=== PATIENT | female | born 1990 | race Caucasian/White ===

== ENCOUNTER 2017-12-01 22:50 | Inpatient (IN) | payer MEDICAID ==
[~2017-12-01] VITALS: Ht 165.1 cm; Wt 66.7 kg
[~2017-12-01 22:50] MED LIST: CHOL10002 PO; CIPR-245 PO; MIRT15 PO
[2017-12-02] MEDS ORDERED: ZOLPIDEM TARTRATE 10 MG TABLET PO PRN (00:45)
[2017-12-02 01:01] VITALS: BP 99/63
[2017-12-02 01:37] VITALS: BP 107/70
[2017-12-02] MEDS ORDERED: [UNRECOGNIZED DRUG - REMARK] PO (02:08)
[2017-12-02] MEDS ORDERED: MAG HYDROX/AL HYDROX/SIMETH ES 30 ML SUSPENSION UDCUP PO PRN ×2 (02:15→10:00)
[2017-12-02] MEDS ORDERED: MAGNESIUM HYDROXIDE SUSPENSION 30 ML UDCUP PO PRN ×2 (02:15→10:00)
[2017-12-02] MEDS ORDERED: LOPERAMIDE HCL 2 MG CAPSULE PO PRN ×2 (02:15→10:00)
[2017-12-02] MEDS ORDERED: PROMETHAZINE HCL 25 MG TABLET PO PRN ×2 (02:15→10:00)
[2017-12-02] MEDS ORDERED: ACETAMINOPHEN 325 MG TABLET PO PRN ×2 (02:15→10:00)
[2017-12-02] MEDS ORDERED: RISPC25 IM (06:49)
[2017-12-02] MEDS ORDERED: RISP1 PO (06:49)
[2017-12-02 08:07] VITALS: BP 100/64
[2017-12-02 08:28] LABS: BASOPHILS % (AUTO) 0.5 % (0.0-2.0); EOSINOPHILS % (AUTO) 4.8 % (1.0-6.0); HEMATOCRIT 37.6 % (36-46); HEMOGLOBIN 12.6 g/dL (12.0-16.0); LYMPHOCYTES # (AUTO) 2.2 K/uL (1.0-4.8); LYMPHOCYTES % (AUTO) 40.9 % (22.0-44.0); MEAN CORPUSCULAR HEMOGLOBIN 30.8 pg (26.0-34.0); MEAN CORPUSCULAR HGB CONC 33.4 G/dL (31.0-37.0); MEAN CORPUSCULAR VOLUME 92 fL (80-100); MONOCYTES # (AUTO) 0.5 K/uL (0.1-1.0); MONOCYTES % (AUTO) 9.6 % (2.0-9.0); NEUTROPHILS # (AUTO) 2.3 K/uL (1.8-7.7); NEUTROPHILS % (AUTO) 44.2 % (40.0-70.0); PLATELET COUNT (AUTO) 301 K/uL (150-450); RED BLOOD CELL COUNT(AUTO) 4.08 MIL/uL (4.00-5.20)
[2017-12-02 09:11] LABS: ALANINE AMINOTRANSFERASE 57 U/L (12-78); ALBUMIN 3.3 g/dL (3.4-5.0); ALKALINE PHOSPHATASE 59 U/L (46-116); ANION GAP 7 mmol/L (8-16); ASPARTATE AMINOTRANSFERASE 29 U/L (15-37); BILIRUBIN,TOTAL 0.4 mg/dL (0.1-1.0); CALCIUM, TOTAL 9.2 mg/dL (8.8-10.5); CARBON DIOXIDE 28 mmol/L (22-29); CHLORIDE 106 mmol/L (98-107); CHOL/HDL RATIO 2.7 (3.9-5.7); CHOLESTEROL 151 mg/dL (131-200); CREATININE 0.83 mg/dL (0.60-1.30); FREE T4 (FREE THYROXINE) 0.98 ng/dL (0.76-1.46); GLOMERULAR FILTR. RATE CALC > 60 mL/min (>60); GLUCOSE,RANDOM 73 mg/dL (70-110); HCG,QUANTITATIVE < 1 mIU/mL (0-6); HDL CHOLESTEROL 56 mg/dL (40-60); LDL CHOL (CALC.) 85 mg/dL (0-130); POTASSIUM 4.2 mmol/L (3.5-5.1); SODIUM SERUM 141 mmol/L (136-145); THYROID STIMULATING HORMONE 0.62 uIU/mL (0.36-3.74); TOTAL PROTEIN, SERUM 7.5 g/dL (6.4-8.2); TRIGLYCERIDES 48 mg/dL (15-150); UREA NITROGEN, BLOOD 14 mg/dL (7-18)
[2017-12-02] MEDS: NICOTINE 21 MG/24 HOUR PATCH TD SCH (09:20)
[2017-12-02] MEDS ORDERED: GuaiFENesin/D-METHORPHAN [SUGAR-FREE] 200-20MG/10 ML SYRUP UDCUP PO PRN (10:00)
[2017-12-02] MEDS ORDERED: HydrOXYzine PAMOATE 50 MG CAPSULE PO PRN (10:00)
[2017-12-02] MEDS ORDERED: TUBERCULIN, PURIFIED PROTEIN DERIVATIVE 5 TU/0.1 ML SYG ID ONE (10:00)
[2017-12-02] MEDS: THIAMINE HCL 100 MG TABLET PO SCH (17:50)
[2017-12-02 21:26] VITALS: BP 110/65
[2017-12-02] MEDS: DIVALPROEX SODIUM 500 MG ER TABLET PO SCH (21:31)
[2017-12-02] MEDS: OLANZapine 5 MG RAPDIS TABLET PO SCH (21:32)
[2017-12-03 06:25] VITALS: BP 101/61
[2017-12-03 08:05] VITALS: BP 90/60
[2017-12-03] MEDS: FOLIC ACID 1 MG TABLET PO SCH (08:21)
[2017-12-03] MEDS: MULTIVITAMINS WITH MINERALS, THERAPEUTIC TABLET PO SCH (08:21)
[2017-12-03] MEDS: NALTREXONE HCL 50 MG TABLET PO SCH (08:24)
[2017-12-03] MEDS: THIAMINE HCL 100 MG TABLET PO SCH ×2 (08:24→18:05)
[2017-12-03] MEDS: NICOTINE 21 MG/24 HOUR PATCH TD SCH (08:31)
[2017-12-03] MEDS ORDERED: FLUoxetine HCL 20 MG CAPSULE PO SCH (09:00)
[2017-12-03 17:27] VITALS: BP 108/68
[2017-12-03 17:29] VITALS: BP 111/77
[2017-12-03] MEDS: DIVALPROEX SODIUM 500 MG ER TABLET PO SCH (20:34)
[2017-12-03] MEDS: OLANZapine 5 MG RAPDIS TABLET PO SCH (20:34)
[2017-12-04 05:48] VITALS: BP 106/65
[2017-12-04 08:09] VITALS: BP 90/60
[2017-12-04] MEDS: FOLIC ACID 1 MG TABLET PO SCH (08:23)
[2017-12-04] MEDS: NALTREXONE HCL 50 MG TABLET PO SCH (08:23)
[2017-12-04] MEDS: THIAMINE HCL 100 MG TABLET PO SCH ×2 (08:23→16:51)
[2017-12-04] MEDS: MULTIVITAMINS WITH MINERALS, THERAPEUTIC TABLET PO SCH (08:23)
[2017-12-04] MEDS: FLUoxetine HCL 20 MG CAPSULE PO SCH (08:23)
[2017-12-04] MEDS: NICOTINE 21 MG/24 HOUR PATCH TD SCH (08:24)
[2017-12-04 16:00] VITALS: BP 105/62
[2017-12-04] MEDS: OLANZapine 5 MG RAPDIS TABLET PO SCH (20:23)
[2017-12-04] MEDS: DIVALPROEX SODIUM 500 MG ER TABLET PO SCH (20:23)
[2017-12-05 07:01] VITALS: BP 98/77
[2017-12-05 08:03] VITALS: BP 100/60
[2017-12-05] MEDS: NALTREXONE HCL 50 MG TABLET PO SCH (08:53)
[2017-12-05] MEDS: THIAMINE HCL 100 MG TABLET PO SCH ×2 (08:53→17:10)
[2017-12-05] MEDS: MULTIVITAMINS WITH MINERALS, THERAPEUTIC TABLET PO SCH (08:53)
[2017-12-05] MEDS: FOLIC ACID 1 MG TABLET PO SCH (08:53)
[2017-12-05] MEDS: FLUoxetine HCL 20 MG CAPSULE PO SCH (08:53)
[2017-12-05] MEDS: NICOTINE 21 MG/24 HOUR PATCH TD SCH (08:59)
[2017-12-05 16:03] VITALS: BP 112/66
[2017-12-05] MEDS: OLANZapine 5 MG RAPDIS TABLET PO SCH (20:03)
[2017-12-05] MEDS: DIVALPROEX SODIUM 500 MG ER TABLET PO SCH (20:03)
[2017-12-06 06:00] VITALS: BP 108/64
[2017-12-06 08:24] VITALS: BP 110/64
[2017-12-06] MEDS: FLUoxetine HCL 20 MG CAPSULE PO SCH (08:53)
[2017-12-06] MEDS: THIAMINE HCL 100 MG TABLET PO SCH ×2 (08:53→17:07)
[2017-12-06] MEDS: NALTREXONE HCL 50 MG TABLET PO SCH (08:53)
[2017-12-06] MEDS: FOLIC ACID 1 MG TABLET PO SCH (08:53)
[2017-12-06] MEDS: MULTIVITAMINS WITH MINERALS, THERAPEUTIC TABLET PO SCH (08:53)
[2017-12-06] MEDS: NICOTINE 21 MG/24 HOUR PATCH TD SCH (09:00)
[2017-12-06 16:30] VITALS: BP 111/64
[2017-12-06] MEDS: OLANZapine 5 MG RAPDIS TABLET PO SCH (20:31)
[2017-12-06] MEDS: DIVALPROEX SODIUM 500 MG ER TABLET PO SCH (20:31)
[2017-12-07 06:45] VITALS: BP 109/65
[2017-12-07 08:03] VITALS: BP 110/68
[2017-12-07] MEDS: FOLIC ACID 1 MG TABLET PO SCH (08:29)
[2017-12-07] MEDS: FLUoxetine HCL 20 MG CAPSULE PO SCH (08:29)
[2017-12-07] MEDS: THIAMINE HCL 100 MG TABLET PO SCH ×2 (08:29→16:57)
[2017-12-07] MEDS: MULTIVITAMINS WITH MINERALS, THERAPEUTIC TABLET PO SCH (08:29)
[2017-12-07] MEDS: NICOTINE 21 MG/24 HOUR PATCH TD SCH (08:30)
[2017-12-07] MEDS: NALTREXONE HCL 50 MG TABLET PO SCH (08:30)
[2017-12-07 16:19] VITALS: BP 107/68
[2017-12-07] MEDS: OLANZapine 5 MG RAPDIS TABLET PO SCH (20:19)
[2017-12-07] MEDS: DIVALPROEX SODIUM 500 MG ER TABLET PO SCH (20:19)
[2017-12-08 01:54] VITALS: BP 114/71
[2017-12-08 08:04] VITALS: BP 116/68
[2017-12-08] MEDS: FOLIC ACID 1 MG TABLET PO SCH (08:04)
[2017-12-08] MEDS: FLUoxetine HCL 20 MG CAPSULE PO SCH (08:04)
[2017-12-08] MEDS: THIAMINE HCL 100 MG TABLET PO SCH ×2 (08:05→16:49)
[2017-12-08] MEDS: NICOTINE 21 MG/24 HOUR PATCH TD SCH (08:05)
[2017-12-08] MEDS: NALTREXONE HCL 50 MG TABLET PO SCH (08:05)
[2017-12-08] MEDS: MULTIVITAMINS WITH MINERALS, THERAPEUTIC TABLET PO SCH (08:05)
[2017-12-08 16:00] VITALS: BP 105/63
[2017-12-08] MEDS: DiphenhydrAMINE HCL 25 MG CAPSULE PO SCH (20:32)
[2017-12-08] MEDS: DIVALPROEX SODIUM 500 MG ER TABLET PO SCH (20:32)
[2017-12-08] MEDS: OLANZapine 5 MG RAPDIS TABLET PO SCH (20:33)
[2017-12-09 05:59] VITALS: BP 101/65
[2017-12-09 08:17] VITALS: BP 100/57
[2017-12-09] MEDS: FLUoxetine HCL 20 MG CAPSULE PO SCH (08:45)
[2017-12-09] MEDS: FOLIC ACID 1 MG TABLET PO SCH (08:46)
[2017-12-09] MEDS: THIAMINE HCL 100 MG TABLET PO SCH ×2 (08:46→19:14)
[2017-12-09] MEDS: NICOTINE 21 MG/24 HOUR PATCH TD SCH (08:46)
[2017-12-09] MEDS: NALTREXONE HCL 50 MG TABLET PO SCH (08:46)
[2017-12-09] MEDS: MULTIVITAMINS WITH MINERALS, THERAPEUTIC TABLET PO SCH (08:46)
[2017-12-09 16:00] VITALS: BP 113/73
[2017-12-09] MEDS ORDERED: NALT50TA6 PO (16:54)
[2017-12-09] MEDS ORDERED: THIA100T67 PO (16:54)
[2017-12-09] MEDS ORDERED: DIVA500T52 PO (16:54)
[2017-12-09] MEDS ORDERED: FOLI1 PO (16:54)
[2017-12-09] MEDS ORDERED: FLUO-191 PO (16:54)
[2017-12-09 19:05] VITALS: BP 109/71
[2017-12-09] MEDS: DIVALPROEX SODIUM 500 MG ER TABLET PO SCH (20:49)
[2017-12-09] MEDS: DiphenhydrAMINE HCL 25 MG CAPSULE PO SCH (20:50)
[2017-12-09] MEDS: OLANZapine 10 MG RAPDIS TABLET PO SCH (20:50)
[2017-12-09] MEDS: MetroNIDAZOLE 500 MG TABLET PO SCH (21:56)
[2017-12-10 06:48] VITALS: BP 102/63
[2017-12-10] MEDS: NALTREXONE HCL 50 MG TABLET PO SCH (08:37)
[2017-12-10] MEDS: FOLIC ACID 1 MG TABLET PO SCH (08:38)
[2017-12-10] MEDS: THIAMINE HCL 100 MG TABLET PO SCH ×2 (08:38→16:49)
[2017-12-10] MEDS: NICOTINE 21 MG/24 HOUR PATCH TD SCH (08:38)
[2017-12-10] MEDS: MULTIVITAMINS WITH MINERALS, THERAPEUTIC TABLET PO SCH (08:38)
[2017-12-10] MEDS: MetroNIDAZOLE 500 MG TABLET PO SCH ×2 (08:38→16:49)
[2017-12-10] MEDS: FLUoxetine HCL 20 MG CAPSULE PO SCH (08:38)
[2017-12-10 08:47] VITALS: BP 108/62
[2017-12-10] MEDS: LORazepam 2 MG TABLET PO PRN (16:49)
[2017-12-10 17:00] VITALS: BP 103/62
[2017-12-10] MEDS: DIVALPROEX SODIUM 500 MG ER TABLET PO SCH (20:22)
[2017-12-10] MEDS: OLANZapine 10 MG RAPDIS TABLET PO SCH (20:22)
[2017-12-10] MEDS: DiphenhydrAMINE HCL 25 MG CAPSULE PO SCH (20:22)
[2017-12-11 06:20] VITALS: BP 104/62
[2017-12-11 08:23] VITALS: BP 98/57
[2017-12-11] MEDS: NALTREXONE HCL 50 MG TABLET PO SCH (08:24)
[2017-12-11] MEDS: FOLIC ACID 1 MG TABLET PO SCH (08:24)
[2017-12-11] MEDS: MULTIVITAMINS WITH MINERALS, THERAPEUTIC TABLET PO SCH (08:24)
[2017-12-11] MEDS: THIAMINE HCL 100 MG TABLET PO SCH ×2 (08:24→16:21)
[2017-12-11] MEDS: FLUoxetine HCL 20 MG CAPSULE PO SCH (08:25)
[2017-12-11] MEDS: NICOTINE 21 MG/24 HOUR PATCH TD SCH (08:28)
[2017-12-11] MEDS: MetroNIDAZOLE 500 MG TABLET PO SCH ×2 (09:10→16:21)
[2017-12-11 16:24] VITALS: BP 89/57
[2017-12-11 18:02] VITALS: BP 138/69
[2017-12-11] MEDS: DIVALPROEX SODIUM 500 MG ER TABLET PO SCH (20:58)
[2017-12-11] MEDS: OLANZapine 10 MG RAPDIS TABLET PO SCH (20:58)
[2017-12-11] MEDS: DiphenhydrAMINE HCL 25 MG CAPSULE PO SCH (20:58)
[2017-12-12 05:35] VITALS: BP 116/64
[2017-12-12 08:26] VITALS: BP 128/70
[2017-12-12] MEDS: FOLIC ACID 1 MG TABLET PO SCH (09:08)
[2017-12-12] MEDS: MetroNIDAZOLE 500 MG TABLET PO SCH ×2 (09:08→16:20)
[2017-12-12] MEDS: FLUoxetine HCL 20 MG CAPSULE PO SCH (09:08)
[2017-12-12] MEDS: NALTREXONE HCL 50 MG TABLET PO SCH (09:08)
[2017-12-12] MEDS: MULTIVITAMINS WITH MINERALS, THERAPEUTIC TABLET PO SCH (09:08)
[2017-12-12] MEDS: THIAMINE HCL 100 MG TABLET PO SCH (09:08)
[2017-12-12] MEDS: NICOTINE 21 MG/24 HOUR PATCH TD SCH (09:09)
[2017-12-12] MEDS ORDERED: FLUO-191 PO (14:31)
[2017-12-12] MEDS ORDERED: DIVA500T52 PO (14:31)
[2017-12-12] MEDS ORDERED: NALT50TA PO (14:31)
[2017-12-12] MEDS ORDERED: OLAN10TA22 PO (14:31)
[2017-12-12 16:16] VITALS: BP 105/66
[2017-12-12] MEDS: LORazepam 2 MG TABLET PO PRN (17:38)
[2017-12-12] MEDS: OLANZapine 10 MG RAPDIS TABLET PO SCH (20:06)
[2017-12-12] MEDS: DiphenhydrAMINE HCL 25 MG CAPSULE PO SCH (20:06)
[2017-12-12] MEDS: DIVALPROEX SODIUM 500 MG ER TABLET PO SCH (20:06)
[2017-12-13 04:50] VITALS: BP 102/60
[2017-12-13 08:32] VITALS: BP 102/64
[2017-12-13] MEDS: LORazepam 2 MG TABLET PO PRN (09:39)
[2017-12-13] MEDS: FLUoxetine HCL 20 MG CAPSULE PO SCH (09:39)
[2017-12-13] MEDS: NALTREXONE HCL 50 MG TABLET PO SCH (09:39)
[2017-12-13] MEDS: MULTIVITAMINS WITH MINERALS, THERAPEUTIC TABLET PO SCH (09:39)
[2017-12-13] MEDS: MetroNIDAZOLE 500 MG TABLET PO SCH ×2 (09:40→16:23)
[2017-12-13] MEDS: NICOTINE 21 MG/24 HOUR PATCH TD SCH (09:43)
[2017-12-13 16:27] VITALS: BP 129/89
[2017-12-13] MEDS: DIVALPROEX SODIUM 500 MG ER TABLET PO SCH (20:13)
[2017-12-13] MEDS: DiphenhydrAMINE HCL 25 MG CAPSULE PO SCH (20:13)
[2017-12-13] MEDS: OLANZapine 10 MG RAPDIS TABLET PO SCH (20:13)
[2017-12-14 07:23] VITALS: BP 118/72
[2017-12-14] MEDS: MULTIVITAMINS WITH MINERALS, THERAPEUTIC TABLET PO SCH (08:33)
[2017-12-14] MEDS: NALTREXONE HCL 50 MG TABLET PO SCH (08:33)
[2017-12-14] MEDS: FLUoxetine HCL 20 MG CAPSULE PO SCH (08:33)
[2017-12-14] MEDS: MetroNIDAZOLE 500 MG TABLET PO SCH ×2 (08:34→16:22)
[2017-12-14 08:45] VITALS: BP 108/74
[2017-12-14] MEDS: NICOTINE 21 MG/24 HOUR PATCH TD SCH (09:42)
[2017-12-14] MEDS: LORazepam 2 MG TABLET PO PRN (16:22)
[2017-12-14 16:41] VITALS: BP 106/63
[2017-12-14] MEDS: DiphenhydrAMINE HCL 25 MG CAPSULE PO SCH (20:09)
[2017-12-14] MEDS: DIVALPROEX SODIUM 500 MG ER TABLET PO SCH (20:09)
[2017-12-14] MEDS: OLANZapine 10 MG RAPDIS TABLET PO SCH (20:09)
[2017-12-15 07:12] VITALS: BP 110/72
[2017-12-15 08:00] VITALS: BP 93/66
[2017-12-15] MEDS: MetroNIDAZOLE 500 MG TABLET PO SCH ×2 (08:36→16:42)
[2017-12-15] MEDS: MULTIVITAMINS WITH MINERALS, THERAPEUTIC TABLET PO SCH (08:36)
[2017-12-15] MEDS: LORazepam 2 MG TABLET PO PRN (08:36)
[2017-12-15] MEDS: FLUoxetine HCL 20 MG CAPSULE PO SCH (08:36)
[2017-12-15] MEDS: NICOTINE 21 MG/24 HOUR PATCH TD SCH (08:36)
[2017-12-15] MEDS: NALTREXONE HCL 50 MG TABLET PO SCH ×2 (08:38→08:40)
[2017-12-15 16:00] VITALS: BP 105/69
[2017-12-15] MEDS: OLANZapine 10 MG RAPDIS TABLET PO SCH (20:25)
[2017-12-15] MEDS: DIVALPROEX SODIUM 500 MG ER TABLET PO SCH (20:25)
[2017-12-16 06:36] VITALS: BP 106/68
[2017-12-16 08:16] VITALS: BP 90/60
[2017-12-16] MEDS: FLUoxetine HCL 20 MG CAPSULE PO SCH (09:14)
[2017-12-16] MEDS: MULTIVITAMINS WITH MINERALS, THERAPEUTIC TABLET PO SCH (09:15)
[2017-12-16] MEDS: MetroNIDAZOLE 500 MG TABLET PO SCH (09:15)
[2017-12-16] MEDS: NALTREXONE HCL 50 MG TABLET PO SCH (09:20)
[2017-12-16] MEDS: NICOTINE 21 MG/24 HOUR PATCH TD SCH (09:28)
== END 2017-12-16 12:10 | disposition home or self-care (01) | DRG 750 ==
LOC: B3A 12-02 00:59
PROVIDERS: ADMIT Psychiatry & Neurology Psychiatry; ATTEND Psychiatry & Neurology Psychiatry
DX: F25.0 Schizoaffective disorder, bipolar type (principal); R45.851 Suicidal ideations; F31.81 Bipolar II disorder; Z91.19 Patient's noncompliance with other medical treatment and regimen; E55.9 Vitamin D deficiency, unspecified; F15.10 Other stimulant abuse, uncomplicated; F17.210 Nicotine dependence, cigarettes, uncomplicated; Z65.3 Problems related to other legal circumstances; Z87.440 Personal history of urinary (tract) infections; Z91.410 Personal history of adult physical and sexual abuse
CPT/HCPCS: 84439; 84443

== ENCOUNTER 2017-12-09 16:22 | Emergency (ER) | payer MEDICAID ==
[~2017-12-09] VITALS: Ht 165.1 cm; Wt 68.0 kg
[~2017-12-09 16:22] MED LIST changes: -CIPR-245 PO; +RISP1 PO; +RISPC25 IM
[2017-12-09] MEDS ORDERED: FOLI1 PO (16:54)
[2017-12-09] MEDS ORDERED: FLUO-191 PO (16:54)
[2017-12-09] MEDS ORDERED: THIA100T67 PO (16:54)
[2017-12-09] MEDS ORDERED: DIVA500T52 PO (16:54)
[2017-12-09] MEDS ORDERED: NALT50TA6 PO (16:54)
[2017-12-09 18:09] VITALS: BP 100/63
== END 2017-12-09 18:50 | disposition home or self-care (01) ==
LOC: EMS 16:23
DX: M79.5 Residual foreign body in soft tissue (principal); F31.9 Bipolar disorder, unspecified; F17.210 Nicotine dependence, cigarettes, uncomplicated; F15.90 Other stimulant use, unspecified, uncomplicated; Z79.899 Other long term (current) drug therapy
CPT/HCPCS: 99283